=== PATIENT | female | born 1970 | race Caucasian/White ===

== ENCOUNTER 2017-01-11 14:31 | Emergency (ER) | payer SELFPAY ==
[2017-01-11] MEDS ORDERED: Bacitracin Zinc 1 Packet ONE ×2 (14:40)
== END 2017-01-11 14:43 | disposition home or self-care (01) ==
LOC: BURERS 14:31
DX: S81.852A Open bite, left lower leg, initial encounter (principal); F17.210 Nicotine dependence, cigarettes, uncomplicated; Z79.899 Other long term (current) drug therapy; W59.11XA Bitten by nonvenomous snake, initial encounter
CPT/HCPCS: 99283